=== PATIENT | female | born 1950 | race Hispanic/Latino ===

== ENCOUNTER 2021-08-24 11:48 | Emergency (ER) | payer SELFPAY ==
--- NOTE | 2021-08-24 14:07 | RAD REPORT ---
EXAM DESCRIPTION: RAD - Abdomen 1 View (KUB) - 08/24/2021 2:00 pm CLINICAL HISTORY: Abdomen pain FINDINGS: The bowel gas pattern is unremarkable. No significant abnormal calcification is displayed
[2021-08-24] MEDS ORDERED: LACTULOSE 20 GM/30 ML UCUP ONE (14:52)
--- NOTE | 2021-08-24 16:36 | ER ---
Nurse's Notes [facility] Name: Anthony Griffin Age: 70 yrs Sex: Female : 1950 Arrival Date: 08/24/2021 Time: 11:51 Bed 7 Private MD: Diagnosis: Constipation, unspecified Presentation: 08/24 12:44 Chief complaint: Patient states: she has been constipated for approx 5 days. she ap3 reports she drank magnesium citrate and had a small bowel movement yesterday. patient feels bloated. Coronavirus screen: At this time, the client does not indicate any symptoms associated with coronavirus-19. Ebola Screen: No symptoms or risks identified at this time. Initial Sepsis Screen: Does the patient meet any 2 criteria? No. Patient's initial sepsis screen is negative. Does the patient have a suspected source of infection? No. Patient's initial sepsis screen is negative. Risk Assessment: Do you want to hurt yourself or someone else? Patient reports no desire to harm self or others. Onset of symptoms was August 19, 2021. 12:44 Method Of Arrival: Ambulatory ap3 12:44 Acuity: KAYLEE 3 ap3 Triage Assessment: 12:47 General: Appears in no apparent distress. Behavior is calm, cooperative. Pain: Denies ap3 pain. Neuro: Reports weakness. Cardiovascular: Patient's skin is warm and dry. Respiratory: Airway is patent Respiratory effort is even, unlabored. GI: Reports constipation. Historical: - Allergies: 12:46 No Known Allergies; ap3 - Home Meds: 12:46 losartan oral [Active]; ap3 - PMHx: 12:46 Hypertensive disorder; ap3 - Immunization history:: Client reports receiving the 2nd dose of the Covid vaccine. - Social history:: Smoking status: Patient denies any tobacco usage or history of. Screenin:47 Abuse screen: Denies threats or abuse. Nutritional screening: No deficits noted. ap3 Tuberculosis screening: No symptoms or risk factors identified. 16:50 Fall Risk None identified. jl7 Assessment: 13:00 General: Appears in no apparent distress. uncomfortable, Behavior is calm, cooperative, jl7 appropriate for age. Pain: Denies pain. Neuro: Level of Consciousness is awake, alert, obeys commands, Oriented to person, place, time, situation. Cardiovascular: Patient's skin is warm and dry. Respiratory: Airway is patent Respiratory effort is even, unlabored, Respiratory pattern is regular, symmetrical. GI: Bowel sounds hyperactive in right upper quadrant, left upper quadrant, right lower quadrant and left lower quadrant Abd is soft X 4 quads Abdomen is tender to palpation in right upper quadrant and right lower quadrant Reports constipation. : Denies burning with urination, pain with urination. Derm: Skin is pink, warm \T\ dry. 16:30 Reassessment: Pt reports able to have a BM, ERP notified. jl7 Vital Signs: 12:44 BP 174 / 79; Pulse 82; Resp 17; Temp 98.2; Pulse Ox 97% on R/A; Weight 54.43 kg; Height ap3 5 ft. (152.40 cm); 16:49 BP 156 / 87; Pulse 98; Resp 15; Pulse Ox 100% ; jl7 12:44 Body Mass Index 23.44 (54.43 kg, 152.40 cm) ap3 ED Course: 11:51 Patient arrived in ED. as 12:01 Rocco Posada PA is PHCP. [facility] 12:01 Lei Olvera DO is Attending Physician. jmm 12:46 Triage completed. ap3 12:47 Arm band placed on left wrist. ap3 12:50 Denia Ahumada, HERNESTO is Primary Nurse. jl7 14:01 Abdomen 1 View (KUB) XRAY In Process Unspecified. EDMS 16:49 No provider procedures requiring assistance completed. Patient did not have IV access jl7 during this emergency room visit. 16:50 Patient has correct armband on for positive identification. jl7 Administered Medications: 14:51 Drug: Lactulose 20 grams Volume: 30 ml; Route: PO; jl7 16:00 Follow up: Response: No adverse reaction jl7 Medication: 12:48 VIS not applicable for this client. ap3 Outcome: 16:35 Discharge ordered by . [facility] 16:49 Discharged to home ambulatory. jl7 16:49 Condition: stable 16:49 Discharge instructions given to patient, family, Instructed on discharge instructions, follow up and referral plans. medication usage, Demonstrated understanding of instructions, follow-up care, medications, Prescriptions given X 1. 16:50 Patient left the ED. jl7 Signatures: Dispatcher [employer] EDMS Rocco Posada PA PA jmm Gregg, Dora as Ahumada, Jahala, RN RN jl7 Rama East RN RN ap3
--- NOTE | 2021-08-24 16:36 | EDPHYS ---
Physician Documentation [facility] Name: Anthony Griffin Age: 70 yrs Sex: Female : 1950 Arrival Date: 08/24/2021 Time: 11:51 Bed 7 Private MD: ED Physician Lei Olvera HPI: 08/24 12:45 This 70 yrs old Female presents to ER via Ambulatory with complaints of jmm Constipation. 12:45 Onset: The symptoms/episode began/occurred gradually, 1 week(s) ago. The symptoms do jmm not radiate. Associated signs and symptoms: Pertinent positives: constipation, Pertinent negatives: vomiting. The symptoms are described as achy, crampy, intermittent. This is a 70 year old female with a history of htn that presents to the ED with complaints of constipation beginning approx 1 week ago. Denies vomiting. States having some lower abdominal cramping. . Historical: - Allergies: 12:46 No Known Allergies; ap3 - Home Meds: 12:46 losartan oral [Active]; ap3 - PMHx: 12:46 Hypertensive disorder; ap3 - Immunization history:: Client reports receiving the 2nd dose of the Covid vaccine. - Social history:: Smoking status: Patient denies any tobacco usage or history of. ROS: 12:45 Constitutional: Negative for fever, chills, and weight loss, Cardiovascular: Negative jmm for chest pain, palpitations, and edema, Respiratory: Negative for shortness of breath, cough, wheezing, and pleuritic chest pain. 12:45 Abdomen/GI: Positive for constipation. 12:45 All other systems are negative. Exam: 12:45 Constitutional: This is a well developed, well nourished patient who is awake, alert, jmm and in no acute distress. Head/Face: atraumatic. Eyes: EOMI, no conjunctival erythema appreciated ENT: Moist Mucus Membranes Neck: Trachea midline, Supple Chest/axilla: Normal chest wall appearance and motion. Cardiovascular: Regular rate and rhythm. No edema appreciated Respiratory: Normal respirations, no respiratory distress appreciated 12:45 Skin: General appearance color normal MS/ Extremity: Moves all extremities, no obvious deformities appreciated, no edema noted to the lower extremities Neuro: Awake and alert Psych: Behavior is normal, Mood is normal, Patient is cooperative and pleasant 12:45 Abdomen/GI: Inspection: abdomen appears normal, Bowel sounds: normal, Palpation: soft, mild abdominal tenderness, in the suprapubic area and left lower quadrant. Vital Signs: 12:44 BP 174 / 79; Pulse 82; Resp 17; Temp 98.2; Pulse Ox 97% on R/A; Weight 54.43 kg; Height ap3 5 ft. (152.40 cm); 16:49 BP 156 / 87; Pulse 98; Resp 15; Pulse Ox 100% ; jl7 12:44 Body Mass Index 23.44 (54.43 kg, 152.40 cm) ap3 MDM: 12:45 Patient medically screened. [facility] 16:34 Data reviewed: vital signs, nurses notes. Counseling: I had a detailed discussion with chelsea the patient and/or guardian regarding: the historical points, exam findings, and any diagnostic results supporting the discharge/admit diagnosis, radiology results, the need for outpatient follow up, to return to the emergency department if symptoms worsen or persist or if there are any questions or concerns that arise at home. 08/24 12:46 Order name: Abdomen 1 View (KUB) XRAY; Complete Time: 14:11 [facility] Administered Medications: 14:51 Drug: Lactulose 20 grams Volume: 30 ml; Route: PO; jl7 16:00 Follow up: Response: No adverse reaction jl7 Disposition: 17:36 Co-signature as Attending Physician, Lei Olvera DO I was immediately available on-site ms3 in the Emergency Department for consultation in the care of the patient.. Disposition Summary: 08/24/21 16:35 Discharge Ordered Location: Home [facility] Condition: Stable [facility] Diagnosis - Constipation, unspecified [facility] Followup: [facility] - With: Private Physician - When: 2 - 3 days - Reason: Recheck today's complaints, Continuance of care, Re-evaluation by your physician Discharge Instructions: - Discharge Summary Sheet [facility] - Constipation, Adult [facility] Forms: - Medication Reconciliation Form [facility] - Thank You Letter [facility] - Antibiotic Education [facility] - Prescription Opioid Use [facility] Prescriptions: - Miralax 17 gram Oral powder in packet - take 1 packet by ORAL route once daily for 30 days; 1 box; Refills: 0, Product [facility] Selection Permitted Signatures: Dispatcher [facility] Rocco Meneses PA PA jmm Leal, Jahala, RN RN jl7 Rama East RN RN ap3 Lei Olvera DO DO ms3 Corrections: (The following items were deleted from the chart) 16:39 14:15 Misc. Order ordered. chelsea jl7
[2021-08-24 16:54] VITALS: TEMP 98.2
[2021-08-24 16:55] VITALS: BP 156/87; O2SAT 100
== END 2021-08-24 16:50 | disposition home or self-care (01) ==
LOC: ER 11:48
DX: K59.00 Constipation, unspecified (principal); I10 Essential (primary) hypertension
CPT/HCPCS: 74018; 99283